=== PATIENT | female | born 1985 | race Caucasian/White ===

== ENCOUNTER 2018-04-26 01:57 | Observation (INO) | payer MEDICAID ==
[2018-04-26] VITALS (13 sets, daily range): BP systolic 97–124; BP diastolic 55–97
[~2018-04-26] VITALS: Ht 160 cm; Wt 86.9 kg
[2018-04-26 02:30] LABS: BASOPHILS # (AUTO) 0.1 X10'3 (0-0.2); BASOPHILS % (AUTO) 0.8 % (0-1); EOSINOPHILS # (AUTO) 0.6 X10'3 (0-0.9); EOSINOPHILS % (AUTO) 4.8 % (0-6); HEMATOCRIT 46.9 % (35.0-45.0); HEMOGLOBIN 15.9 g/dl (12.0-16.0); LYMPHOCYTES # (AUTO) 3.9 X10'3 (1.1-4.8); LYMPHOCYTES % (AUTO) 31.2 % (21-51); MEAN CORPUSCULAR HEMOGLOBIN 31.8 PG (27.0-31.0); MEAN CORPUSCULAR VOLUME 93.6 FL (78-98); MEAN PLATELET VOLUME 7.6 FL (7.4-10.4); MONOCYTES # (AUTO) 0.7 X10'3 (0-0.9); NEUTROPHILS # (AUTO) 7.1 X10'3 (1.8-7.7); NEUTROPHILS % (AUTO) 57.2 % (42-75); PLATELET COUNT 283 X10'3 (140-440); RED BLOOD COUNT 5.01 X10'6 (4.20-5.60); WHITE BLOOD COUNT 12.4 X10'3 (4.5-11.0)
[2018-04-26] MEDS ORDERED: aspirin 81mg tab.chew PO ONE (02:35)
[2018-04-26] MEDS ORDERED: ondansetron/PF 4mg/2ml inj IV ONE (02:35)
[2018-04-26] MEDS: nitroGLYCERIN 0.4mg SUBLingual tab SL PRN ×2 (02:37→02:47)
[2018-04-26 02:41] LABS: INR 0.9 INR; PARTIAL THROMBOPLASTIN TIME 26 SECONDS (22-32); PROTHROMBIN TIME 9.4 SECONDS (9.0-12.0)
[2018-04-26 02:43] LABS: ALANINE AMINOTRANSFERASE 49 U/L (12-78); ALBUMIN 3.7 G/DL (3.4-5.0); ALBUMIN/GLOBULIN RATIO 0.9 (1.1-1.5); ALKALINE PHOSPHATASE 70 IU/L (46-116); ANION GAP 15 (8-16); ASPARTATE AMINO TRANSFERASE 23 U/L (10-37); BILIRUBIN,TOTAL 0.2 MG/DL (0.1-1.0); BLOOD UREA NITROGEN 14 MG/DL (7-18); BUN/CREATININE RATIO 18.2 (6.6-38.0); CALCIUM 9.1 MG/DL (8.5-10.1); CHLORIDE 103 MMOL/L (99-107); CREATININE 0.77 MG/DL (0.40-0.90); GLUCOSE 115 MG/DL (70-104); POTASSIUM 3.7 MMOL/L (3.5-5.1); SODIUM 138 MMOL/L (135-145); TOTAL CARBON DIOXIDE 20.4 MMOL/L (24-32); TOTAL PROTEIN 7.8 G/DL (6.4-8.2); eGFR 86 ML/MIN
[2018-04-26] MEDS ORDERED: morphine 4 MG/ML inj SYRINge IV ONE ×2 (03:25→04:35)
[2018-04-26] MEDS ORDERED: CETI-102 PO (03:46)
[2018-04-26] MEDS ORDERED: SPIR100T PO (03:46)
[2018-04-26] MEDS ORDERED: ROSU40TA PO (03:46)
[2018-04-26] MEDS ORDERED: EZET10TA13 PO (03:46)
[2018-04-26] MEDS ORDERED: AMLO10TA4 PO (03:46)
[2018-04-26] MEDS ORDERED: DESV50TA PO (03:46)
[2018-04-26] MEDS ORDERED: METO25TA6 PO (03:46)
[2018-04-26] MEDS ORDERED: ASPI81TA52 PO (03:46)
[2018-04-26] MEDS ORDERED: metoprolol tartrate 1mg/ml inj IV ONE (04:25)
[2018-04-26] MEDS ORDERED: acetaminophen 325mg tablet PO PRN (04:30)
[2018-04-26] MEDS ORDERED: mag hydrox/Alum hydrox/simeth 30ml oral suspension PO PRN (04:30)
[2018-04-26] MEDS ORDERED: ondansetron/PF 4mg/2ml inj IV PRN (04:30)
[2018-04-26] MEDS ORDERED: magnesium hydroxide 30ml (MOM) UD suspension PO PRN (04:30)
[2018-04-26] MEDS ORDERED: cetirizine 10mg tablet PO PRN (04:30)
[2018-04-26 05:23] LABS: HEMOGLOBIN A1C 5.6 % (4.5-6.2)
[2018-04-26 05:31] LABS: CHOL/HDL RATIO 1.8 (0.00-4.99); CHOLESTEROL 98 MG/DL (0-200); HDL CHOLESTEROL 55 MG/DL (35-60); LDL CHOLESTEROL 35 MG/DL (50-100); TRIGLYCERIDES 93 MG/DL (20-135)
[2018-04-26] MEDS: morphine 2 MG/ML inj. syringe IV PRN ×2 (07:33→15:01)
[2018-04-26] MEDS ORDERED: venlafaxine 25mg tablet PO SCH (08:00)
[2018-04-26] MEDS ORDERED: metoprolol tartrate 25mg tablet PO SCH (08:00)
[2018-04-26] MEDS ORDERED: ezetimibe 10mg tablet PO SCH (08:00)
[2018-04-26] MEDS ORDERED: DESVENLAFAXINE SUCCINATE 50 MG PO SCH (08:00)
[2018-04-26] MEDS ORDERED: heparin, porcine 5000 units/ml vial SQ SCH ×2 (08:00)
[2018-04-26] MEDS ORDERED: amLODIPine 5mg tablet PO SCH (08:00)
[2018-04-26] MEDS ORDERED: aspirin 81mg tablet.DR PO SCH (08:00)
[2018-04-26] MEDS ORDERED: regadenoson 0.4mg/5ml syringe IV PRN (10:05)
[2018-04-26] MEDS ORDERED: CAFFEINE CITRATE 60 MG/3 ML injection vial IV PRN (10:05)
[2018-04-26] MEDS ORDERED: metoprolol tartrate 1mg/ml inj IV PRN (10:05)
[2018-04-26] MEDS ORDERED: nitroGLYCERIN 0.4mg SUBLingual tab SL PRN (10:05)
[2018-04-26] MEDS ORDERED: CAFFEINE CITRATE 60 MG/3 ML injection vial IV ONE (12:41)
[2018-04-26] MEDS ORDERED: regadenoson 0.4mg/5ml syringe IV ONE (12:42)
== END 2018-04-26 17:10 | disposition home or self-care (01) ==
LOC: ER 02:00 → ED HOLD 04:29 → PCU 3S 05:42
PROVIDERS: ADMIT Internal Medicine; ATTEND Internal Medicine
DX: R07.89 Other chest pain (principal); I25.10 Atherosclerotic heart disease of native coronary artery without angina pectoris; E11.9 Type 2 diabetes mellitus without complications; F17.210 Nicotine dependence, cigarettes, uncomplicated; E78.00 Pure hypercholesterolemia, unspecified; I24.9 Acute ischemic heart disease, unspecified; I10 Essential (primary) hypertension; I25.2 Old myocardial infarction; Z95.5 Presence of coronary angioplasty implant and graft; Z90.710 Acquired absence of both cervix and uterus; Z82.49 Family history of ischemic heart disease and other diseases of the circulatory system
CPT/HCPCS: 36415; 71045; 78452; 80053; 80061; 83036; 83880; 84484; 85025; 85610; 85730; 87070; 93005; 93017; 93306; 96372; 96374; 96375; 96376; 99285; A9500; G0378; J1644; J2270; J2405; J3490

== ENCOUNTER 2020-04-13 18:51 | Emergency (ER) | payer OTHER, BC ==
[~2020-04-13] VITALS: Ht 162.6 cm; Wt 84.5 kg
[2020-04-13 18:51] VITALS: BP 129/86
[~2020-04-13 18:51] MED LIST: AMLO10TA4 PO; ASPI81TA52 PO; CETI-90 PO; DESV50TA PO; METO25TA6 PO; ROSU40TA PO; SPIR100T PO; ZET10T PO
--- NOTE | 2020-04-13 20:02 | NUR ---
assisted Miky LOCKETT with I&D of abscess to left breast, culture sent to lab, dressed wound with guaze and paper tape, pt shahab procedure well
[2020-04-13] MEDS ORDERED: sulfamethoxazole/trimethoprim DS (800/160mg) tablet PO ONE (20:05)
[2020-04-13] MEDS ORDERED: SULF1TAB49 PO (20:06)
== END 2020-04-13 20:21 | disposition home or self-care (01) ==
LOC: ER 18:51
DX: N61.1 Abscess of the breast and nipple (principal); E78.00 Pure hypercholesterolemia, unspecified; I10 Essential (primary) hypertension; I25.2 Old myocardial infarction; Z90.710 Acquired absence of both cervix and uterus; Z88.8 Allergy status to other drugs, medicaments and biological substances; Z79.82 Long term (current) use of aspirin; Z79.899 Other long term (current) drug therapy
CPT/HCPCS: 10060; 87070; 99283